=== PATIENT | male | born 1965 | race African-American/Black ===

== ENCOUNTER 2024-08-27 09:14 | Day surgery (SDC) | payer OTHER ==
[2024-08-26 08:36] VITALS: BMI 28.1
[2024-08-27] MEDS ORDERED: CEFAZOLIN 2 GM VIAL ONE (09:52)
[2024-08-27] MEDS ORDERED: Acetaminophen 500 MG TAB ONE (10:09)
[2024-08-27] MEDS ORDERED: PROPOFOL 20 ML ONE (10:36)
[2024-08-27] MEDS ORDERED: fentaNYL 50 mcg/mL 1 mL Vial ONE ×2 (10:36→12:12)
[2024-08-27] MEDS ORDERED: Midazolam HCl 2 mg/2 ml Vial ONE ×2 (10:37→10:46)
[2024-08-27] MEDS ORDERED: Dexamethasone 4 mg/ml Vial ONE (10:38)
[2024-08-27] MEDS ORDERED: Lidocaine 1% PF 5 ML VIAL ONE (10:38)
[2024-08-27] MEDS ORDERED: Ondansetron PF 4 MG/2 ML Vial ONE (10:38)
[2024-08-27] MEDS ORDERED: Bupivacaine PF 0.5% 30 ML VIAL ONE (11:19)
[2024-08-27] MEDS ORDERED: Albuterol HFA (OR) 200 PUFF INH ONE ×2 (11:34→11:37)
[2024-08-27] MEDS ORDERED: Meperidine HCl/PF 25 MG (1 mL) VIAL ONE (11:43)
[2024-08-27] MEDS ORDERED: HYDROcodone/Acetaminophen 5/325 mg Tablet ONE (12:35)
== END 2024-08-27 12:56 | disposition home or self-care (01) ==
LOC: CSHSDC 09:14
PROVIDERS: ATTEND Podiatrist Foot & Ankle Surgery
PROC: 0SRN0JZ Replacement of Left Metatarsal-Phalangeal Joint with Synthetic Substitute, Open Approach (ICD-10-PCS; principal; 2024-08-27)
DX: M20.22 Hallux rigidus, left foot (principal); Z87.891 Personal history of nicotine dependence; Z98.890 Other specified postprocedural states; Z79.899 Other long term (current) drug therapy
CPT/HCPCS: C1776; J0665; J1100; J2175; J2250; J2405; J2704; J3010

== ENCOUNTER 2025-03-24 12:56 | Emergency (ER) | payer OTHER ==
[2025-03-24 13:54] LABS: #Basophils Less than 0.03 10x3/uL (0.0-0.2); #Eosinophils 0.07 10x3/uL (0.0-0.5); #Monocytes 0.78 10x3/uL (0.0-1.1); #Neutrophils 7.64 10x3/uL (1.5-8.4); %Basophils 0.2 % (0.0-2.0); %Eosinophils 0.7 % (0.0-6.0); %Lymphocytes 10.8 % (18.0-47.0); %Monocytes 8.1 % (0.0-10.0); %Neutrophils 79.8 % (40.0-75.0); Hematocrit 44.9 % (38.8-50.0); Hemoglobin 14.5 g/dL (13.5-17.5); Mean Corpuscular Hemoglobin 27.7 pg (27.0-33.0); Mean Corpuscular Volume 85.9 fL (81.2-95.1); Platelet Count 190 10x3/uL (150-450); Red Blood Cell (RBC) Count 5.23 10x6/uL (4.32-5.72); White Blood Cell (WBC) Count 9.58 10x3/uL (3.5-10.5)
[2025-03-24 14:11] LABS: ALT (SGPT) 124 U/L (Less than 45); AST (SGOT) 76 U/L (11-34); Albumin 3.8 g/dL (3.1-4.5); Alkaline Phosphatase 68 U/L (40-110); Anion Gap 15 mmol/L (10-20); BUN (Urea Nitrogen) 14 mg/dL (8.4-25.7); Bilirubin, Total 1.3 mg/dL (0.3-1.2); Calc. Creatinine Clearance 0 mL/min (70-130); Calcium 9.4 mg/dL (7.8-10.44); Carbon Dioxide 26 mmol/L (22-29); Chloride 105 mmol/L (98-107); Globulin 4.1 g/dL (2.4-3.5); Glucose 96 mg/dL (70-105); Potassium 3.6 mmol/L (3.5-5.1); Sodium 142 mmol/L (136-145)
[2025-03-24 14:13] LABS: Glucose, Urine (Dipstick) Normal (Negative); Leukocyte 500 (Negative); Protein, Urine (Dipstick) 100 mg/dl (Neg-Trace); Specific Gravity, Urine 1.030 (1.005-1.030)
[2025-03-24 14:29] LABS: CAUTI Indications for Culture Dysuria,urgency,freq; WBC/HPF 21-50 HPF (0-3)
[2025-03-24 14:31] LABS: Bacteria/HPF None Seen HPF (None Seen)
[2025-03-24 14:32] LABS: Urine Culture Reflex Yes Yes
[2025-03-25 07:51] LABS: Chlam.trachomatis by PCR,Urine Not Detected (NotDetected); GC N.gonorrhoeae PCR,UrineVOID Not Detected (NotDetected)
== END 2025-03-24 16:28 | disposition home or self-care (01) ==
LOC: CSHERS 12:56
DX: N41.0 Acute prostatitis (principal); N45.1 Epididymitis; R79.89 Other specified abnormal findings of blood chemistry; R93.2 Abnormal findings on diagnostic imaging of liver and biliary tract; Z55.6 Problems related to health literacy
CPT/HCPCS: 74177; 76870; 80053; 81001; 85025; 87077; 87086; 87186; 87491; 87591; 93976

== ENCOUNTER 2025-03-28 09:14 | Emergency (ER) | payer OTHER ==
[2025-03-28 11:04] LABS: Glucose, Urine (Dipstick) Normal (Negative); Leukocyte 500 (Negative); Protein, Urine (Dipstick) 30 mg/dl (Neg-Trace); Specific Gravity, Urine 1.025 (1.005-1.030)
[2025-03-28 11:30] LABS: Bacteria/HPF 2+ HPF (None Seen); CAUTI Indications for Culture Pelvic or flank pain; WBC/HPF 21-50 HPF (0-3)
[2025-03-28 11:32] LABS: Urine Culture Reflex Yes Yes
== END 2025-03-28 12:02 | disposition home or self-care (01) ==
LOC: CSHERS 09:14
DX: N45.3 Epididymo-orchitis (principal); Z55.6 Problems related to health literacy
CPT/HCPCS: 76870; 81001; 87086; 93976